=== PATIENT | male | born 1950 | race Caucasian/White ===

== ENCOUNTER 2017-12-09 10:30 | Inpatient (IN) | payer SELFPAY ==
[~2017-12-09] VITALS: Ht 170.2 cm; Wt 93.0 kg
[2017-12-09] MEDS ORDERED: ASPIRIN 81 MG TABLET CHEW PO ONE (11:00)
[2017-12-09] MEDS ORDERED: SODIUM CHLORIDE FLUSH 10ML SYR IVF ONE (11:00)
[2017-12-09] MEDS ORDERED: MORPHINE SULFATE 4 MG/ML, 1ML IVPush PRN (11:00)
[2017-12-09] MEDS ORDERED: ASPIRIN 81 MG TABLET CHEW ONE (11:15)
[2017-12-09 11:16] LABS: MEAN CORPUSCULAR HEMOGLOBIN 31.6 pg (27.5-34.5); MEAN CORPUSCULAR HGB CONC 33.9 g/dL (33.2-36.2); MEAN CORPUSCULAR VOLUME 93.3 fL (81-97); MEAN PLATELET VOLUME 6.9 fL (7.4-10.4); PLATELET COUNT 452 x10^3/uL (130-400); RED BLOOD COUNT 5.05 x10^6/uL (4.38-5.82); RED CELL DISTRIBUTION WIDTH 14.1 % (9.4-14.8)
[2017-12-09 11:22] LABS: INTERNATIONAL NORMALIZED RATIO 1.09 (0.93-1.1); PROTHROMBIN TIME 11.2 Seconds (9.6-11.5)
[2017-12-09 11:27] LABS: ALANINE AMINOTRANSFERASE 22 U/L (12-78); ALBUMIN 3.6 g/dL (3.4-5.0); ANION GAP 9 mmol/L (5-15); CALCIUM 8.4 mg/dL (8.5-10.1); CHLORIDE 103 mmol/L (98-107)
[2017-12-09 11:32] LABS: ALKALINE PHOSPHATASE 62 U/L (45-117); BILIRUBIN,TOTAL 1.3 mg/dL (0.2-1.0); TOTAL PROTEIN 8.1 g/dL (6.4-8.2); TROPONIN I < 0.015 ng/mL (0.000-0.045)
[2017-12-09 11:33] LABS: BASOPHILS # (AUTO) 0.05 x10^3/uL (0-0.1); BASOPHILS % (AUTO) 0 % (0-1); EOSINOPHILS # (AUTO) 0.02 x10^3/uL (0-0.4); EOSINOPHILS % (AUTO) 0 % (1-7); LYMPHOCYTES # (AUTO) 1.03 x10^3/uL (1-3.4); LYMPHOCYTES % (AUTO) 6 % (22-44); MD SCAN; MONOCYTES # (AUTO) 0.98 x10^3/uL (0.2-0.8); MONOCYTES % (AUTO) 6 % (2-9); NEUTROPHILS # (AUTO) 14.93 x10^3/uL (1.8-6.8); NEUTROPHILS % (AUTO) 88 % (42-75)
[2017-12-09] MEDS ORDERED: OMNIPAQUE 350 MG/ML, 100ML BOTTLE ONE (12:22)
[2017-12-09] MEDS ORDERED: CEFTRIAXONE PMX 1GM/50ML 50 ML IVPB ONE (12:30)
[2017-12-09] MEDS ORDERED: KETOROLAC 30 MG/1 ML IVPush ONE (12:30)
[2017-12-09] MEDS ORDERED: SODIUM CHLORIDE 0.9% 1,000ML IVBOLUS ONE (12:30)
[2017-12-09] MEDS ORDERED: DOXYCYCLINE 100 MG in DEXTROSE 5% 250 ML IV ONE (12:30)
[2017-12-09] MEDS ORDERED: CEFTRIAXONE PMX 1GM/50ML 50 ML ONE (12:40)
[2017-12-09] MEDS: CEFTRIAXONE PMX 1GM/50ML 50 ML IV SCH (13:00)
[2017-12-09] MEDS ORDERED: DOXYCYCLINE 100 MG in DEXTROSE 5% 250 ML IV SCH (13:00)
[2017-12-09] MEDS ORDERED: ONDANSETRON ODT 4 MG PO PRN (13:00)
[2017-12-09] MEDS ORDERED: ONDANSETRON 2MG/ML, 2ML IVPush PRN (13:00)
[2017-12-09] MEDS ORDERED: ENOXAPARIN 40 MG/0.4 ML ONE (14:09)
[2017-12-09] MEDS ORDERED: KETOROLAC 30 MG/1 ML ONE ×2 (14:09→23:05)
[2017-12-09] MEDS: ENOXAPARIN 40 MG/0.4 ML SQ SCH (14:13)
[2017-12-09] MEDS: SODIUM CHLORIDE 0.9% 1,000 ML IV SCH (15:55)
[2017-12-09] MEDS: ACETAMINOPHEN 325 MG TABLET PO PRN (16:41)
[2017-12-09 16:58] VITALS: BP 145/80
[2017-12-09 21:33] VITALS: BP 131/78
[2017-12-09] MEDS: KETOROLAC 30 MG/1 ML IVPush PRN (23:10)
[2017-12-10] MEDS ORDERED: DOXYCYCLINE 100 MG in DEXTROSE 5% 250 ML IV SCH (02:00)
[2017-12-10] MEDS: DOXYCYCLINE 100 MG in DEXTROSE 5% 250 ML IV SCH ×2 (02:09→14:46)
[2017-12-10 02:28] VITALS: BP 114/66
[2017-12-10] MEDS: ACETAMINOPHEN 325 MG TABLET PO PRN ×3 (02:55→18:12)
[2017-12-10 05:31] LABS: MEAN CORPUSCULAR HEMOGLOBIN 31.5 pg (27.5-34.5); MEAN CORPUSCULAR HGB CONC 33.9 g/dL (33.2-36.2); MEAN CORPUSCULAR VOLUME 92.9 fL (81-97); MEAN PLATELET VOLUME 7.4 fL (7.4-10.4); PLATELET COUNT 419 x10^3/uL (130-400); RED CELL DISTRIBUTION WIDTH 14.1 % (9.4-14.8)
[2017-12-10 05:48] LABS: CHLORIDE 106 mmol/L (98-107)
[2017-12-10 05:56] LABS: ANION GAP 10 mmol/L (5-15); CALCIUM 7.7 mg/dL (8.5-10.1); CREATININE 0.89 mg/dL (0.7-1.3)
[2017-12-10 06:01] LABS: BASOPHILS # (AUTO) 0.01 x10^3/uL (0-0.1); BASOPHILS % (AUTO) 0 % (0-1); EOSINOPHILS # (AUTO) 0.06 x10^3/uL (0-0.4); EOSINOPHILS % (AUTO) 0 % (1-7); LYMPHOCYTES # (AUTO) 1.47 x10^3/uL (1-3.4); LYMPHOCYTES % (AUTO) 7 % (22-44); MD SCAN; MONOCYTES # (AUTO) 1.71 x10^3/uL (0.2-0.8); MONOCYTES % (AUTO) 8 % (2-9); NEUTROPHILS # (AUTO) 19.25 x10^3/uL (1.8-6.8); NEUTROPHILS % (AUTO) 86 % (42-75)
[2017-12-10] MEDS: SODIUM CHLORIDE 0.9% 1,000 ML IV SCH ×2 (08:26→20:59)
[2017-12-10] MEDS: MORPHINE SULFATE 4 MG/ML, 1ML IVPush PRN ×4 (08:27→22:51)
[2017-12-10 08:52] VITALS: BP 118/66
[2017-12-10] MEDS: CEFTRIAXONE PMX 1GM/50ML 50 ML IV SCH (12:42)
[2017-12-10 14:27] VITALS: BP 136/79
[2017-12-10] MEDS: ENOXAPARIN 40 MG/0.4 ML SQ SCH (14:46)
[2017-12-10 20:53] VITALS: BP 105/65
[2017-12-11 01:49] VITALS: BP 105/70
[2017-12-11] MEDS: ACETAMINOPHEN 325 MG TABLET PO PRN (01:58)
[2017-12-11] MEDS: DOXYCYCLINE 100 MG in DEXTROSE 5% 250 ML IV SCH (02:39)
[2017-12-11] MEDS: KETOROLAC 30 MG/1 ML IVPush PRN (02:47)
[2017-12-11] MEDS: MORPHINE SULFATE 4 MG/ML, 1ML IVPush PRN ×4 (02:56→18:21)
[2017-12-11 05:43] LABS: MEAN CORPUSCULAR VOLUME 94.3 fL (81-97); MEAN PLATELET VOLUME 7.1 fL (7.4-10.4); PLATELET COUNT 383 x10^3/uL (130-400); RED BLOOD COUNT 4.13 x10^6/uL (4.38-5.82)
[2017-12-11 05:45] LABS: CHLORIDE 106 mmol/L (98-107)
[2017-12-11 05:56] LABS: ANION GAP 7 mmol/L (5-15); CALCIUM 8.1 mg/dL (8.5-10.1); CREATININE 1.25 mg/dL (0.7-1.3)
[2017-12-11 06:09] LABS: MD YES
[2017-12-11 06:11] LABS: BAND#(MANUAL) 1.02 x10^3/uL; BANDS%(MANUAL) 4 % (0-7); LYMPH#(MANUAL) 0.77 x10^3/uL (1-3.4); LYMPHS% (MANUAL) 3 % (22-44); MONOS#(MANUAL) 2.05 x10^3/uL (0.3-2.7); MONOS% (MANUAL) 8 % (2-9); SEG#(MANUAL) 21.76 x10^3/uL (1.8-6.8); SEGS% (MANUAL) 85 % (42-75)
[2017-12-11 06:13] LABS: <PLATELET ESTIMATE> ADEQUATE; <PLT MORPHOLOGY> NORMAL PLT MORPH; <RBC MORPHOLOGY> NORMAL
[2017-12-11 07:02] VITALS: BP 90/57
[2017-12-11] MEDS: ALBUTEROL/IPRATROPIUM 2.5MG/0.5MG, 3 ML NPPB SCH ×3 (07:30→19:48)
[2017-12-11] MEDS ORDERED: ALBUTEROL/IPRATROPIUM 2.5MG/0.5MG, 3 ML NPPB PRN (08:00)
[2017-12-11] MEDS: CEFTRIAXONE PMX 2GM/50ML 50 ML IV SCH (08:20)
[2017-12-11] MEDS: AZITHROMYCIN 500 MG in SODIUM CHLORIDE 0.9% 250 ML IV SCH (09:20)
[2017-12-11] MEDS: KETOROLAC 30 MG/1 ML IVPush SCH ×3 (12:14→23:03)
[2017-12-11] MEDS: SODIUM CHLORIDE 0.9% 1,000 ML IV SCH ×2 (12:16→23:04)
[2017-12-11 13:46] VITALS: BP 96/56
[2017-12-11] MEDS: ENOXAPARIN 40 MG/0.4 ML SQ SCH (13:51)
[2017-12-11 20:06] VITALS: BP 117/72
[2017-12-12 02:01] VITALS: BP 120/78
[2017-12-12] MEDS: ALBUTEROL/IPRATROPIUM 2.5MG/0.5MG, 3 ML NPPB SCH ×4 (02:58→21:59)
[2017-12-12] MEDS: MORPHINE SULFATE 4 MG/ML, 1ML IVPush PRN ×3 (04:19→23:43)
[2017-12-12] MEDS: KETOROLAC 30 MG/1 ML IVPush SCH ×4 (05:32→23:03)
[2017-12-12] MEDS: CEFTRIAXONE PMX 2GM/50ML 50 ML IV SCH (06:47)
[2017-12-12 07:39] VITALS: BP 124/77
[2017-12-12 08:47] LABS: MEAN CORPUSCULAR HEMOGLOBIN 31.4 pg (27.5-34.5); MEAN CORPUSCULAR HGB CONC 33.4 g/dL (33.2-36.2); MEAN CORPUSCULAR VOLUME 94.1 fL (81-97); MEAN PLATELET VOLUME 6.9 fL (7.4-10.4); PLATELET COUNT 407 x10^3/uL (130-400); RED BLOOD COUNT 3.93 x10^6/uL (4.38-5.82); RED CELL DISTRIBUTION WIDTH 14.2 % (9.4-14.8)
[2017-12-12 09:12] LABS: BASOPHILS # (AUTO) 0.04 x10^3/uL (0-0.1); BASOPHILS % (AUTO) 0 % (0-1); EOSINOPHILS # (AUTO) 0.26 x10^3/uL (0-0.4); EOSINOPHILS % (AUTO) 1 % (1-7); LYMPHOCYTES # (AUTO) 1.31 x10^3/uL (1-3.4); LYMPHOCYTES % (AUTO) 6 % (22-44); MD SCAN; MONOCYTES # (AUTO) 1.73 x10^3/uL (0.2-0.8); MONOCYTES % (AUTO) 8 % (2-9); NEUTROPHILS # (AUTO) 18.89 x10^3/uL (1.8-6.8); NEUTROPHILS % (AUTO) 85 % (42-75)
[2017-12-12] MEDS: AZITHROMYCIN 500 MG in SODIUM CHLORIDE 0.9% 250 ML IV SCH (09:31)
[2017-12-12] MEDS: methylPREDNISolone SOD SUCC 125 MG/2 ML IVPush SCH ×3 (11:00→23:03)
[2017-12-12] MEDS: ENOXAPARIN 40 MG/0.4 ML SQ SCH (12:51)
[2017-12-12 13:00] VITALS: BP 125/81
[2017-12-12] MEDS: SODIUM CHLORIDE 0.9% 1,000 ML IV SCH (20:43)
[2017-12-12 21:58] VITALS: BP 148/79
[2017-12-13 01:51] VITALS: BP 117/71
[2017-12-13 04:59] LABS: MEAN CORPUSCULAR HEMOGLOBIN 31.4 pg (27.5-34.5); MEAN CORPUSCULAR HGB CONC 33.5 g/dL (33.2-36.2); MEAN CORPUSCULAR VOLUME 93.6 fL (81-97); MEAN PLATELET VOLUME 7.2 fL (7.4-10.4); PLATELET COUNT 457 x10^3/uL (130-400); RED BLOOD COUNT 4.17 x10^6/uL (4.38-5.82); RED CELL DISTRIBUTION WIDTH 13.9 % (9.4-14.8)
[2017-12-13] MEDS: KETOROLAC 30 MG/1 ML IVPush SCH ×2 (05:00→11:49)
[2017-12-13] MEDS: methylPREDNISolone SOD SUCC 125 MG/2 ML IVPush SCH ×2 (05:00→11:44)
[2017-12-13 05:03] LABS: ALBUMIN 2.1 g/dL (3.4-5.0); ANION GAP 7 mmol/L (5-15); CALCIUM 8.3 mg/dL (8.5-10.1); CHLORIDE 103 mmol/L (98-107)
[2017-12-13 05:07] LABS: ALANINE AMINOTRANSFERASE 23 U/L (12-78); ALKALINE PHOSPHATASE 64 U/L (45-117); BILIRUBIN,TOTAL 0.8 mg/dL (0.2-1.0); CREATININE 0.85 mg/dL (0.7-1.3); TOTAL PROTEIN 6.7 g/dL (6.4-8.2)
[2017-12-13 05:38] LABS: MD YES
[2017-12-13 05:39] LABS: BAND#(MANUAL) 2.18 x10^3/uL; BANDS%(MANUAL) 8 % (0-7); LYMPH#(MANUAL) 0.82 x10^3/uL (1-3.4); LYMPHS% (MANUAL) 3 % (22-44); SEG#(MANUAL) 24.21 x10^3/uL (1.8-6.8); SEGS% (MANUAL) 89 % (42-75)
[2017-12-13 05:40] LABS: <RBC MORPHOLOGY> NORMAL
[2017-12-13 05:41] LABS: <PLATELET ESTIMATE> INCREASED; <PLT MORPHOLOGY> NORMAL PLT MORPH
[2017-12-13] MEDS: CEFTRIAXONE PMX 2GM/50ML 50 ML IV SCH (06:36)
[2017-12-13] MEDS: ALBUTEROL/IPRATROPIUM 2.5MG/0.5MG, 3 ML NPPB SCH ×6 (07:05→22:58)
[2017-12-13] MEDS: PIPERACILLIN/TAZO/PMX 3.375GM 50 ML IV SCH ×3 (08:11→21:55)
[2017-12-13] MEDS ORDERED: SODIUM CHLORIDE INHALATION 7%, 4 ML NPPB ONE (09:30)
[2017-12-13 10:57] VITALS: BP 129/72
[2017-12-13] MEDS: LINEZOLID PMX 600MG/300ML 300 ML IV SCH (11:44)
[2017-12-13] MEDS: ENOXAPARIN 40 MG/0.4 ML SQ SCH (13:56)
[2017-12-13] MEDS: SODIUM CHLORIDE 0.9% 1,000 ML IV SCH (14:55)
[2017-12-13] MEDS ORDERED: KETOROLAC 30 MG/1 ML IVPush PRN (16:00)
[2017-12-13] MEDS ORDERED: FENTANYL PF 250 MCG/5ML ONE (16:45)
[2017-12-13 16:57] VITALS: BP 128/84
[2017-12-13] MEDS ORDERED: OXYcodone 5 MG/5 ML ORAL.SOL UDC PO PRN (17:00)
[2017-12-13] MEDS ORDERED: ONDANSETRON ODT 8 MG PO PRN (17:00)
[2017-12-13] MEDS ORDERED: FENTANYL PF 100 MCG/2ML IV PRN ×2 (17:00→21:30)
[2017-12-13] MEDS ORDERED: LABETALOL 5MG/ML, 20ML IV PRN (17:00)
[2017-12-13] MEDS ORDERED: HYDROmorphone 1 MG/ML, 1ML IV PRN (17:00)
[2017-12-13] MEDS ORDERED: hydrALAzine 20 MG/ML, 1ML IV PRN (17:00)
[2017-12-13] MEDS ORDERED: PROMETHAZINE 12.5 MG SUPP PR PRN (17:00)
[2017-12-13] MEDS ORDERED: MEPERIDINE/PF 25MG/0.5ML IVPush PRN (17:00)
[2017-12-13] MEDS ORDERED: EPINEPHRINE 1 MG/ML, 1ML ONE (17:39)
[2017-12-13] MEDS ORDERED: BUPIVACAINE 0.25% ONE (17:39)
[2017-12-13] MEDS ORDERED: KETAMINE 50 MG/ML, 10ML ONE (17:58)
[2017-12-13] MEDS ORDERED: DEXAMETHASONE 4 MG/ML, 1ML ONE (18:16)
[2017-12-13] MEDS ORDERED: CEFAZOLIN 1,000 MG ONE ×2 (18:17)
[2017-12-13] MEDS ORDERED: BUPIVACAINE/PF-EPI 0.25% 1:200K IM ONE (18:38)
[2017-12-13] MEDS ORDERED: PROPOFOL 10 MG/ML, 20ML ONE (18:43)
[2017-12-13] MEDS ORDERED: ROCURONIUM 10MG/ML,5ML ONE (18:43)
[2017-12-13] MEDS ORDERED: SUCCINYLCHOLINE 20 MG/ML, 10ML ONE (18:43)
[2017-12-13] MEDS ORDERED: ONDANSETRON 2MG/ML, 2ML ONE (18:50)
[2017-12-13] MEDS ORDERED: FENTANYL PF 100 MCG/2ML ONE (19:37)
[2017-12-13] MEDS ORDERED: PROPOFOL 100 ML IV ONE (19:54)
[2017-12-13] MEDS: D5%-0.9% NACL+KCL 20MEQ 1,000 ML IV SCH (20:30)
[2017-12-13] MEDS ORDERED: MORPHINE SULFATE 4 MG/ML, 1ML IVPush PRN (20:30)
[2017-12-13] MEDS ORDERED: LIDOCAINE-MPF 1%, 2ML ENDO PRN (21:30)
[2017-12-13] MEDS ORDERED: PHARMACY MAY ADJ FOR RENAL FX MC SCH (21:30)
[2017-12-13] MEDS: LACTATED RINGERS 1,000 ML IV SCH (21:55)
[2017-12-13] MEDS: PROPOFOL 100 ML IV PRN (23:56)
[2017-12-14] MEDS: LINEZOLID PMX 600MG/300ML 300 ML IV SCH ×2 (01:05→11:07)
[2017-12-14] MEDS: ALBUTEROL/IPRATROPIUM 2.5MG/0.5MG, 3 ML NPPB SCH ×6 (02:37→22:39)
[2017-12-14] MEDS: PROPOFOL 100 ML IV PRN (03:37)
[2017-12-14 04:43] LABS: MEAN CORPUSCULAR HEMOGLOBIN 31.6 pg (27.5-34.5); MEAN CORPUSCULAR HGB CONC 33.9 g/dL (33.2-36.2); MEAN CORPUSCULAR VOLUME 93.2 fL (81-97); MEAN PLATELET VOLUME 7.4 fL (7.4-10.4); PLATELET COUNT 445 x10^3/uL (130-400); RED BLOOD COUNT 3.68 x10^6/uL (4.38-5.82)
[2017-12-14 04:55] LABS: ANION GAP 8 mmol/L (5-15); CALCIUM 8.4 mg/dL (8.5-10.1); CHLORIDE 106 mmol/L (98-107)
[2017-12-14 04:58] LABS: CREATININE 0.84 mg/dL (0.7-1.3)
[2017-12-14 05:43] LABS: BASOPHILS # (AUTO) 0.08 x10^3/uL (0-0.1); BASOPHILS % (AUTO) 0 % (0-1); EOSINOPHILS % (AUTO) 0 % (1-7); LYMPHOCYTES # (AUTO) 1.11 x10^3/uL (1-3.4); LYMPHOCYTES % (AUTO) 5 % (22-44); MD SCAN; MONOCYTES # (AUTO) 0.72 x10^3/uL (0.2-0.8); MONOCYTES % (AUTO) 3 % (2-9); NEUTROPHILS # (AUTO) 20.12 x10^3/uL (1.8-6.8); NEUTROPHILS % (AUTO) 91 % (42-75)
[2017-12-14] MEDS: PIPERACILLIN/TAZO/PMX 3.375GM 50 ML IV SCH ×4 (05:55→21:07)
[2017-12-14] MEDS: D5%-0.9% NACL+KCL 20MEQ 1,000 ML IV SCH (06:30)
[2017-12-14] MEDS: LACTATED RINGERS 1,000 ML IV SCH (10:50)
[2017-12-14] MEDS: ENOXAPARIN 40 MG/0.4 ML SQ SCH (14:28)
[2017-12-14] MEDS ORDERED: OXYcodone 5 MG/5 ML ORAL.SOL UDC PO PRN (21:00)
[2017-12-15] MEDS: LINEZOLID PMX 600MG/300ML 300 ML IV SCH (00:06)
[2017-12-15] MEDS: ALBUTEROL/IPRATROPIUM 2.5MG/0.5MG, 3 ML NPPB SCH ×5 (02:58→19:24)
[2017-12-15] MEDS: PIPERACILLIN/TAZO/PMX 3.375GM 50 ML IV SCH ×4 (03:54→22:41)
[2017-12-15 05:11] LABS: ANION GAP 5 mmol/L (5-15); CALCIUM 7.8 mg/dL (8.5-10.1); CHLORIDE 106 mmol/L (98-107); MEAN CORPUSCULAR HEMOGLOBIN 31.2 pg (27.5-34.5); MEAN CORPUSCULAR HGB CONC 33.4 g/dL (33.2-36.2); MEAN CORPUSCULAR VOLUME 93.3 fL (81-97); MEAN PLATELET VOLUME 7.4 fL (7.4-10.4); PLATELET COUNT 490 x10^3/uL (130-400); RED BLOOD COUNT 3.82 x10^6/uL (4.38-5.82); RED CELL DISTRIBUTION WIDTH 14.4 % (9.4-14.8)
[2017-12-15 06:35] LABS: MD YES
[2017-12-15 06:36] LABS: BAND#(MANUAL) 0.52 x10^3/uL; BANDS%(MANUAL) 3 % (0-7); LYMPH#(MANUAL) 2.58 x10^3/uL (1-3.4); LYMPHS% (MANUAL) 15 % (22-44); METAMYELOCYTES# (MANUAL) 0.17 x10^3/uL (0-0); METAMYELOCYTES% (MANUAL) 1 % (0-1); MONOS#(MANUAL) 1.38 x10^3/uL (0.3-2.7); MONOS% (MANUAL) 8 % (2-9); MYELOCYTES# (MANUAL) 0.17 x10^3/uL (0-0); MYELOCYTES% (MANUAL) 1 % (0-0); SEG#(MANUAL) 12.38 x10^3/uL (1.8-6.8); SEGS% (MANUAL) 72 % (42-75)
[2017-12-15 06:40] LABS: <PLATELET ESTIMATE> INCREASED; <RBC MORPHOLOGY> NORMAL
[2017-12-15 06:41] LABS: <PLT MORPHOLOGY> NORMAL PLT MORPH
[2017-12-15 12:30] VITALS: BP 118/68
[2017-12-15 14:02] VITALS: BP 117/66
[2017-12-15] MEDS: ENOXAPARIN 40 MG/0.4 ML SQ SCH (14:24)
[2017-12-15 19:17] VITALS: BP 129/73
[2017-12-16 02:05] VITALS: BP 152/74
[2017-12-16] MEDS: PIPERACILLIN/TAZO/PMX 3.375GM 50 ML IV SCH (04:38)
[2017-12-16] MEDS: ACETAMINOPHEN 325 MG TABLET PO PRN ×3 (04:50→22:59)
[2017-12-16 05:09] LABS: MEAN CORPUSCULAR HGB CONC 33.5 g/dL (33.2-36.2); MEAN CORPUSCULAR VOLUME 92.6 fL (81-97); MEAN PLATELET VOLUME 7.2 fL (7.4-10.4); PLATELET COUNT 535 x10^3/uL (130-400); RED BLOOD COUNT 4.27 x10^6/uL (4.38-5.82); RED CELL DISTRIBUTION WIDTH 14.2 % (9.4-14.8)
[2017-12-16 05:15] LABS: ANION GAP 6 mmol/L (5-15); CALCIUM 7.5 mg/dL (8.5-10.1); CHLORIDE 104 mmol/L (98-107); CREATININE 0.75 mg/dL (0.7-1.3); TRIGLYCERIDES 145 mg/dL (50-200)
[2017-12-16 05:41] LABS: MD YES
[2017-12-16 05:43] LABS: BAND#(MANUAL) 0.28 x10^3/uL; BANDS%(MANUAL) 2 % (0-7); EOS#(MANUAL) 0.42 x10^3/uL (0.0-0.4); EOS% (MANUAL) 3 % (1-7); LYMPHS% (MANUAL) 22 % (22-44); METAMYELOCYTES# (MANUAL) 0.14 x10^3/uL (0-0); METAMYELOCYTES% (MANUAL) 1 % (0-1); MONOS#(MANUAL) 0.99 x10^3/uL (0.3-2.7); MONOS% (MANUAL) 7 % (2-9); MYELOCYTES# (MANUAL) 0.14 x10^3/uL (0-0); MYELOCYTES% (MANUAL) 1 % (0-0); SEG#(MANUAL) 9.02 x10^3/uL (1.8-6.8); SEGS% (MANUAL) 64 % (42-75)
[2017-12-16 05:44] LABS: <PLATELET ESTIMATE> INCREASED; <PLT MORPHOLOGY> NORMAL PLT MORPH; <RBC MORPHOLOGY> NORMAL
[2017-12-16] MEDS: ALBUTEROL/IPRATROPIUM 2.5MG/0.5MG, 3 ML NPPB SCH ×3 (07:00→19:13)
[2017-12-16 07:10] VITALS: BP 131/72
[2017-12-16] MEDS ORDERED: POTASSIUM CHLORIDE 20 MEQ TAB.ER.PRT PO ONE (07:30)
[2017-12-16] MEDS: AMPICILLIN/SULBACTAM 3 GM in SODIUM CHLORIDE 0.9% 100 ML IV SCH ×3 (11:30→23:00)
[2017-12-16 13:32] VITALS: BP 132/74
[2017-12-16] MEDS: ENOXAPARIN 40 MG/0.4 ML SQ SCH (13:53)
[2017-12-16 21:45] VITALS: BP 159/82
[2017-12-17 03:28] VITALS: BP 125/67
[2017-12-17] MEDS: AMPICILLIN/SULBACTAM 3 GM in SODIUM CHLORIDE 0.9% 100 ML IV SCH ×4 (04:51→23:17)
[2017-12-17 05:27] LABS: ANION GAP 6 mmol/L (5-15); CALCIUM 7.8 mg/dL (8.5-10.1); CHLORIDE 105 mmol/L (98-107)
[2017-12-17 05:39] LABS: MEAN CORPUSCULAR HEMOGLOBIN 31.1 pg (27.5-34.5); MEAN CORPUSCULAR HGB CONC 33.5 g/dL (33.2-36.2); MEAN CORPUSCULAR VOLUME 92.9 fL (81-97); MEAN PLATELET VOLUME 7.1 fL (7.4-10.4); PLATELET COUNT 564 x10^3/uL (130-400); RED BLOOD COUNT 4.29 x10^6/uL (4.38-5.82); RED CELL DISTRIBUTION WIDTH 14.3 % (9.4-14.8)
[2017-12-17 05:59] LABS: MD YES
[2017-12-17 06:02] LABS: BANDS%(MANUAL) 2 % (0-7); EOS#(MANUAL) 0.81 x10^3/uL (0.0-0.4); EOS% (MANUAL) 4 % (1-7); LYMPH#(MANUAL) 2.83 x10^3/uL (1-3.4); LYMPHS% (MANUAL) 14 % (22-44); METAMYELOCYTES% (MANUAL) 2 % (0-1); MONOS#(MANUAL) 0.81 x10^3/uL (0.3-2.7); MONOS% (MANUAL) 4 % (2-9); MYELOCYTES% (MANUAL) 1 % (0-0); SEG#(MANUAL) 14.75 x10^3/uL (1.8-6.8); SEGS% (MANUAL) 73 % (42-75)
[2017-12-17 06:06] LABS: <PLATELET ESTIMATE> INCREASED; <PLT MORPHOLOGY> NORMAL PLT MORPH; POLYCHROMASIA 1+
[2017-12-17 07:21] VITALS: BP 134/76
[2017-12-17] MEDS: ACETAMINOPHEN 325 MG TABLET PO PRN ×2 (10:41→14:13)
[2017-12-17] MEDS: LACTULOSE 10 GM/15 ML UDC PO SCH ×2 (14:12→20:31)
[2017-12-17] MEDS: POLYETHYLENE GLYCOL 17 GM PACKET PO SCH (14:12)
[2017-12-17] MEDS: ENOXAPARIN 40 MG/0.4 ML SQ SCH (14:13)
[2017-12-17 19:41] VITALS: BP 136/82
[2017-12-18 02:10] VITALS: BP 111/64
[2017-12-18 04:55] LABS: MEAN CORPUSCULAR HEMOGLOBIN 31.4 pg (27.5-34.5); MEAN CORPUSCULAR HGB CONC 33.6 g/dL (33.2-36.2); MEAN CORPUSCULAR VOLUME 93.6 fL (81-97); MEAN PLATELET VOLUME 6.7 fL (7.4-10.4); PLATELET COUNT 554 x10^3/uL (130-400); RED BLOOD COUNT 4.06 x10^6/uL (4.38-5.82); RED CELL DISTRIBUTION WIDTH 14.2 % (9.4-14.8)
[2017-12-18] MEDS: AMPICILLIN/SULBACTAM 3 GM in SODIUM CHLORIDE 0.9% 100 ML IV SCH ×4 (05:07→23:22)
[2017-12-18 05:08] LABS: CHLORIDE 103 mmol/L (98-107)
[2017-12-18 05:11] LABS: ANION GAP 7 mmol/L (5-15); CALCIUM 7.6 mg/dL (8.5-10.1); CREATININE 0.63 mg/dL (0.7-1.3)
[2017-12-18] MEDS: ACETAMINOPHEN 325 MG TABLET PO PRN ×2 (05:12→11:27)
[2017-12-18 05:43] LABS: MD YES
[2017-12-18 05:45] LABS: <PLATELET ESTIMATE> INCREASED; <PLT MORPHOLOGY> NORMAL PLT MORPH; <RBC MORPHOLOGY> NORMAL; BAND#(MANUAL) 0.19 x10^3/uL; BANDS%(MANUAL) 1 % (0-7); EOS#(MANUAL) 0.38 x10^3/uL (0.0-0.4); EOS% (MANUAL) 2 % (1-7); LYMPH#(MANUAL) 2.84 x10^3/uL (1-3.4); LYMPHS% (MANUAL) 15 % (22-44); METAMYELOCYTES# (MANUAL) 0.19 x10^3/uL (0-0); METAMYELOCYTES% (MANUAL) 1 % (0-1); MONOS#(MANUAL) 1.32 x10^3/uL (0.3-2.7); MONOS% (MANUAL) 7 % (2-9); NRBC % (MANUAL) 1 % (0-1); SEG#(MANUAL) 13.99 x10^3/uL (1.8-6.8); SEGS% (MANUAL) 74 % (42-75)
[2017-12-18 07:41] VITALS: BP 120/72
[2017-12-18] MEDS: LACTULOSE 10 GM/15 ML UDC PO SCH ×2 (09:00→21:42)
[2017-12-18] MEDS: POLYETHYLENE GLYCOL 17 GM PACKET PO SCH (09:00)
[2017-12-18 12:38] VITALS: BP 111/70
[2017-12-18] MEDS: ENOXAPARIN 40 MG/0.4 ML SQ SCH (13:57)
[2017-12-18 19:34] VITALS: BP 122/72
[2017-12-19 02:58] VITALS: BP 117/68
[2017-12-19] MEDS: AMPICILLIN/SULBACTAM 3 GM in SODIUM CHLORIDE 0.9% 100 ML IV SCH ×4 (05:01→23:37)
[2017-12-19 05:03] LABS: MEAN CORPUSCULAR HEMOGLOBIN 31.1 pg (27.5-34.5); MEAN CORPUSCULAR HGB CONC 33.3 g/dL (33.2-36.2); MEAN CORPUSCULAR VOLUME 93.3 fL (81-97); PLATELET COUNT 557 x10^3/uL (130-400); RED BLOOD COUNT 4.05 x10^6/uL (4.38-5.82); RED CELL DISTRIBUTION WIDTH 14.5 % (9.4-14.8)
[2017-12-19 05:14] LABS: ANION GAP 5 mmol/L (5-15); CHLORIDE 105 mmol/L (98-107); TRIGLYCERIDES 96 mg/dL (50-200)
[2017-12-19 06:31] LABS: MD YES
[2017-12-19 06:33] LABS: BAND#(MANUAL) 0.35 x10^3/uL; BANDS%(MANUAL) 2 % (0-7); EOS% (MANUAL) 4 % (1-7); LYMPH#(MANUAL) 3.87 x10^3/uL (1-3.4); LYMPHS% (MANUAL) 22 % (22-44); MONOS% (MANUAL) 4 % (2-9); MYELOCYTES# (MANUAL) 0.35 x10^3/uL (0-0); MYELOCYTES% (MANUAL) 2 % (0-0); SEG#(MANUAL) 11.62 x10^3/uL (1.8-6.8); SEGS% (MANUAL) 66 % (42-75)
[2017-12-19 06:35] LABS: <PLATELET ESTIMATE> INCREASED; <PLT MORPHOLOGY> NORMAL PLT MORPH; <RBC MORPHOLOGY> NORMAL
[2017-12-19 07:27] VITALS: BP 109/68
[2017-12-19] MEDS: POLYETHYLENE GLYCOL 17 GM PACKET PO SCH (07:46)
[2017-12-19] MEDS: LACTULOSE 10 GM/15 ML UDC PO SCH ×2 (07:46→21:00)
[2017-12-19] MEDS: ACETAMINOPHEN 325 MG TABLET PO PRN ×2 (11:06→23:46)
[2017-12-19 13:34] VITALS: BP 105/64
[2017-12-19] MEDS: ENOXAPARIN 40 MG/0.4 ML SQ SCH (14:28)
[2017-12-19 19:43] VITALS: BP 132/78
[2017-12-20 02:33] VITALS: BP 104/54
[2017-12-20] MEDS: AMPICILLIN/SULBACTAM 3 GM in SODIUM CHLORIDE 0.9% 100 ML IV SCH ×4 (04:54→22:29)
[2017-12-20 05:13] LABS: MEAN CORPUSCULAR HEMOGLOBIN 31.3 pg (27.5-34.5); MEAN CORPUSCULAR HGB CONC 33.5 g/dL (33.2-36.2); MEAN CORPUSCULAR VOLUME 93.3 fL (81-97); MEAN PLATELET VOLUME 7.1 fL (7.4-10.4); PLATELET COUNT 593 x10^3/uL (130-400); RED BLOOD COUNT 3.86 x10^6/uL (4.38-5.82); RED CELL DISTRIBUTION WIDTH 14.6 % (9.4-14.8)
[2017-12-20 05:22] LABS: ANION GAP 5 mmol/L (5-15); CALCIUM 7.6 mg/dL (8.5-10.1); CHLORIDE 107 mmol/L (98-107); CREATININE 0.71 mg/dL (0.7-1.3)
[2017-12-20 06:19] LABS: MD YES
[2017-12-20 06:23] LABS: BAND#(MANUAL) 0.16 x10^3/uL; BANDS%(MANUAL) 1 % (0-7); BASOS#(MANUAL) 0.16 x10^3/uL (0-0.1); BASOS% (MANUAL) 1 % (0-1); EOS#(MANUAL) 0.48 x10^3/uL (0.0-0.4); EOS% (MANUAL) 3 % (1-7); LYMPH#(MANUAL) 1.75 x10^3/uL (1-3.4); LYMPHS% (MANUAL) 11 % (22-44); METAMYELOCYTES# (MANUAL) 0.16 x10^3/uL (0-0); METAMYELOCYTES% (MANUAL) 1 % (0-1); MONOS#(MANUAL) 1.11 x10^3/uL (0.3-2.7); MONOS% (MANUAL) 7 % (2-9); MYELOCYTES# (MANUAL) 0.48 x10^3/uL (0-0); MYELOCYTES% (MANUAL) 3 % (0-0); REACTIVE LYMPHS # (MANUAL) 0.16 x10^3/uL (0-0); REACTIVE LYMPHS % (MANUAL) 1 % (0-0); SEG#(MANUAL) 11.45 x10^3/uL (1.8-6.8); SEGS% (MANUAL) 72 % (42-75)
[2017-12-20 06:24] LABS: <PLATELET ESTIMATE> INCREASED; <PLT MORPHOLOGY> NORMAL PLT MORPH; <RBC MORPHOLOGY> NORMAL
[2017-12-20 08:46] LABS: % IRON SATURATION 16 % (20-55); IRON LEVEL 31 mcg/dL (65-175); TOTAL IRON BINDING CAPACITY 189 mcg/dL (250-450)
[2017-12-20] MEDS: LACTULOSE 10 GM/15 ML UDC PO SCH ×2 (09:00→21:00)
[2017-12-20] MEDS: POLYETHYLENE GLYCOL 17 GM PACKET PO SCH (09:00)
[2017-12-20 16:16] VITALS: BP 107/68
[2017-12-20] MEDS: ENOXAPARIN 40 MG/0.4 ML SQ SCH (17:00)
[2017-12-20] MEDS: ACETAMINOPHEN 325 MG TABLET PO PRN (17:05)
[2017-12-20 19:11] VITALS: BP 122/73
[2017-12-21 04:06] VITALS: BP 112/72
[2017-12-21 04:41] LABS: MEAN CORPUSCULAR HEMOGLOBIN 30.5 pg (27.5-34.5); MEAN CORPUSCULAR HGB CONC 32.6 g/dL (33.2-36.2); MEAN CORPUSCULAR VOLUME 93.5 fL (81-97); PLATELET COUNT 698 x10^3/uL (130-400); RED BLOOD COUNT 4.03 x10^6/uL (4.38-5.82); RED CELL DISTRIBUTION WIDTH 14.4 % (9.4-14.8)
[2017-12-21 04:54] LABS: ANION GAP 7 mmol/L (5-15); CALCIUM 8.2 mg/dL (8.5-10.1); CHLORIDE 104 mmol/L (98-107)
[2017-12-21 04:55] LABS: CREATININE 0.71 mg/dL (0.7-1.3)
[2017-12-21 05:41] LABS: MD YES
[2017-12-21 05:43] LABS: BAND#(MANUAL) 0.28 x10^3/uL; BANDS%(MANUAL) 2 % (0-7); BASOS#(MANUAL) 0.14 x10^3/uL (0-0.1); BASOS% (MANUAL) 1 % (0-1); EOS#(MANUAL) 0.14 x10^3/uL (0.0-0.4); EOS% (MANUAL) 1 % (1-7); MONOS#(MANUAL) 1.67 x10^3/uL (0.3-2.7); MONOS% (MANUAL) 12 % (2-9)
[2017-12-21 05:44] LABS: <PLATELET ESTIMATE> INCREASED; <PLT MORPHOLOGY> NORMAL PLT MORPH; <RBC MORPHOLOGY> NORMAL; LYMPH#(MANUAL) 2.36 x10^3/uL (1-3.4); LYMPHS% (MANUAL) 17 % (22-44); SEG#(MANUAL) 9.31 x10^3/uL (1.8-6.8); SEGS% (MANUAL) 67 % (42-75)
[2017-12-21] MEDS: AMPICILLIN/SULBACTAM 3 GM in SODIUM CHLORIDE 0.9% 100 ML IV SCH ×2 (05:46→11:15)
[2017-12-21 07:16] VITALS: BP 113/70
[2017-12-21] MEDS ORDERED: AMOX1TAB64 PO (08:08)
[2017-12-21] MEDS: POLYETHYLENE GLYCOL 17 GM PACKET PO SCH (08:54)
[2017-12-21] MEDS: LACTULOSE 10 GM/15 ML UDC PO SCH (08:54)
[2017-12-21 11:51] VITALS: BP 114/72
== END 2017-12-21 12:30 | disposition home or self-care (01) | DRG 853 ==
LOC: ED 12:51 → EDIP 12:52 → ED 13:03 → 3NE 15:05 → CCU 12-13 19:50 → 4NOR 12-15 12:21 → DCLOUNGE 12-21 12:14
PROVIDERS: ADMIT Internal Medicine; ATTEND Hospitalist
PROC: 0BDP4ZZ Extraction of Left Pleura, Percutaneous Endoscopic Approach (ICD-10-PCS; principal; 2017-12-13 16:30)
DX: A41.9 Sepsis, unspecified organism (principal); E43 Unspecified severe protein-calorie malnutrition; J18.9 Pneumonia, unspecified organism; J86.9 Pyothorax without fistula; J96.01 Acute respiratory failure with hypoxia; E87.1 Hypo-osmolality and hyponatremia; J90 Pleural effusion, not elsewhere classified; J98.11 Atelectasis; Z99.11 Dependence on respirator [ventilator] status; R65.20 Severe sepsis without septic shock; Z66 Do not resuscitate; R73.9 Hyperglycemia, unspecified; D47.3 Essential (hemorrhagic) thrombocythemia; Z68.32 Body mass index [BMI] 32.0-32.9, adult; Z90.89 Acquired absence of other organs
CPT/HCPCS: 36415; 36600; 71045; 71046; 71275; 80048; 80053; 82803; 83036; 83540; 83550; 83605; 83735; 83880; 84145; 84478; 84484; 85025; 85610; 87040; 87070; 87081; 87205; 93005; 94002; 94003; 94150; 94640; 96365; 96375; C1729; J0171; J0295; J0456; J0690; J0696; J1100; J1650; J1885; J2020; J2405; J2543; J2704; J3010; J3490; J7060; J7620; Q0162; Q9967; J0330; J2930; J7030; J7050; J7120